=== PATIENT | male | born 1990 | race Caucasian/White ===

== ENCOUNTER 2021-07-06 20:22 | Emergency (ER) | payer BC, MEDICARE ==
[~2021-07-06] VITALS: Ht 177.8 cm; Wt 99.8 kg
[2021-07-06 21:18] VITALS: BP_SYST 137
[2021-07-06] MEDS ORDERED: LIDOCAINE 1% 10 MG/ML, 20 ML MDV INJ ONE (22:15)
[2021-07-06] MEDS ORDERED: CLIN-22 PO (23:41)
[2021-07-06] MEDS ORDERED: ACET12.55 PO (23:41)
[2021-07-06] MEDS ORDERED: IBUP-1969 PO (23:41)
[2021-07-06] MEDS ORDERED: IBUPROFEN 600 MG TABLET PO ONE (23:45)
[2021-07-06] MEDS ORDERED: ceFAZolin SODIUM 1 GM VIAL IM ONE (23:45)
[2021-07-06 23:50] VITALS: BP_SYST 129
== END 2021-07-06 23:50 | disposition home or self-care (01) ==
LOC: SED 20:22
DX: S71.141A Puncture wound with foreign body, right thigh, initial encounter (principal); W45.8XXA Other foreign body or object entering through skin, initial encounter; Y93.89 Activity, other specified; Y92.89 Other specified places as the place of occurrence of the external cause; Y99.8 Other external cause status
CPT/HCPCS: 10120; 96372; 99285; J0690; J2001; 99283